=== PATIENT | female | born 1960 | race Caucasian/White ===

== ENCOUNTER → 2018-06-16 | Outpatient (CLI) | payer BC ==
[~2018-06-16] MED LIST: IOHEXOL-350 75 ML VIAL IV ONE
== END | disposition home or self-care (01) ==
LOC: RAH 09:42
PROVIDERS: ATTEND Family Medicine
DX: N28.1 Cyst of kidney, acquired (principal); K80.20 Calculus of gallbladder without cholecystitis without obstruction; M47.815 Spondylosis without myelopathy or radiculopathy, thoracolumbar region; I51.7 Cardiomegaly
CPT/HCPCS: 71275; Q9967